=== PATIENT | male | born 1950 | race Caucasian/White ===

== ENCOUNTER → 2021-01-12 | Outpatient (CLI) | payer OTHER ==
[~2021-01-12] MED LIST: ASPIRIN81 MG PO; CLARITIN10 MG PO; LOPRESSOR 25 MG25 MG PO; MOBIC15 MG PO; NORCO 7.5-3251 EACH PO; TRAZODONE HCL50 MG PO
== END ==
LOC: KOH-I 10:50
DX: M79.642 Pain in left hand (principal); R60.0 Localized edema; M19.042 Primary osteoarthritis, left hand
CPT/HCPCS: 73130

== ENCOUNTER 2021-10-13 15:11 | Emergency (ER) | payer MEDICARE, OTHER ==
[2021-10-13 16:09] LABS: HEMOGLOBIN 12.1 gm/dl (14.0-17.5); RED BLOOD COUNT 3.88 M/UL (4.20-5.50); WHITE BLOOD COUNT 5.3 K/UL (4.5-11.0)
[2021-10-13 16:41] LABS: BUN/CREATININE RATIO 16 (0-10)
[2021-10-13] MEDS ORDERED: MEDROL4 MG PO (17:15)
[2021-10-13] MEDS ORDERED: CEFUROXIME500 MG PO (17:15)
[2021-10-13] MEDS ORDERED: BENZONATATE200 MG PO (17:15)
== END 2021-10-13 17:30 | disposition home or self-care (01) ==
LOC: ER1 15:11
PROVIDERS: Preventive Medicine Occupational Medicine
DX: R05.9 Cough, unspecified (principal)
CPT/HCPCS: 71045; 80053; 83690; 85025; 85652; 86140; 93005; 94664; 94760; 96374; 99285; J0696

== ENCOUNTER 2022-01-26 21:31 | Emergency (ER) | payer MEDICARE, OTHER ==
[~2022-01-26 21:31] MED LIST changes: +BENZONATATE200 MG PO; +CEFUROXIME500 MG PO; +MEDROL4 MG PO
[2022-01-26 22:27] LABS: HEMOGLOBIN 11.7 gm/dl (14.0-17.5); RED BLOOD COUNT 3.71 M/UL (4.20-5.50); WHITE BLOOD COUNT 11.4 K/UL (4.5-11.0)
[2022-01-26 23:00] LABS: BUN/CREATININE RATIO 17 (0-10)
[2022-01-26] MEDS ORDERED: IBUPROFEN600 MG PO (23:29)
[2022-01-26] MEDS ORDERED: ENDOCET 5-3251 EACH PO (23:44)
== END 2022-01-27 00:12 | disposition home or self-care (01) ==
LOC: ER1 21:31
PROVIDERS: Physician Assistant
DX: S22.32XA Fracture of one rib, left side, initial encounter for closed fracture (principal); S20.222A Contusion of left back wall of thorax, initial encounter; I10 Essential (primary) hypertension; E78.5 Hyperlipidemia, unspecified; I25.10 Atherosclerotic heart disease of native coronary artery without angina pectoris; W20.8XXA Other cause of strike by thrown, projected or falling object, initial encounter; Y92.009 Unspecified place in unspecified non-institutional (private) residence as the place of occurrence of the external cause
CPT/HCPCS: 71045; 71260; 80053; 82550; 82553; 84484; 85025; 93005; 96360; 99284; Q9967